=== PATIENT | male | born 1985 | race Caucasian/White ===

== ENCOUNTER 2019-04-12 09:51 | Emergency (ER) | payer SELFPAY ==
[~2019-04-12] VITALS: Ht 170.2 cm; Wt 77.3 kg
[~2019-04-12 09:51] MED LIST: NO HOME MEDS
--- NOTE | 2019-04-12 10:20 | NUR ---
Patient placed in room safely at this time, [employer] at bedside writing 5150, handcuffs in place, [employer] intact, patient keeps requesting his risperdal and states "I want my meds and I wanna go". Patient yelling, aggitated r/t staying in hospital with 5150 hold. Patient re assured and educated on 5150 hold, security at bedside, Dr Lares made aware of agitation.
[2019-04-12 10:32] LABS: BASOPHILS % (AUTO) 0.5 % (0-1); EOSINOPHILS # (AUTO) 0.1 X10'3 (0-0.9); EOSINOPHILS % (AUTO) 1.4 % (0-6); HEMATOCRIT 41.8 % (42.0-52.0); HEMOGLOBIN 14.3 g/dl (14.0-17.9); LYMPHOCYTES # (AUTO) 3.2 X10'3 (1.1-4.8); LYMPHOCYTES % (AUTO) 36.4 % (21-51); MEAN CORPUSCULAR HEMOGLOBIN 30.6 PG (27.0-31.0); MEAN CORPUSCULAR HGB CONC 34.3 g/dL (33.0-36.5); MEAN CORPUSCULAR VOLUME 89.3 FL (78-98); MEAN PLATELET VOLUME 6.1 FL (7.4-10.4); MONOCYTES # (AUTO) 0.6 X10'3 (0-0.9); MONOCYTES % (AUTO) 6.5 % (2-12); NEUTROPHILS # (AUTO) 4.9 X10'3 (1.8-7.7); NEUTROPHILS % (AUTO) 55.2 % (42-75); PLATELET COUNT 309 X10'3 (140-440); RED BLOOD COUNT 4.68 X10'6 (4.70-6.10); RED CELL DISTRIBUTION WIDTH 13.5 % (11.5-14.5); WHITE BLOOD COUNT 8.8 X10'3 (4.5-11.0)
--- NOTE | 2019-04-12 10:35 | NUR ---
Patient calm and cooperative, changed into gown independently and provided UA sample as requested by MD. Patient laying supine in bad with eyes closed and hands up in air in front, tapping fingers.
[2019-04-12 10:49] LABS: ALANINE AMINOTRANSFERASE 28 U/L (12-78); ALBUMIN 3.6 G/DL (3.4-5.0); ALKALINE PHOSPHATASE 61 IU/L (46-116); ANION GAP 5 (8-16); ASPARTATE AMINO TRANSFERASE 23 U/L (10-37); BLOOD UREA NITROGEN 11 MG/DL (7-18); BUN/CREATININE RATIO 12.9 (5.4-32.0); CALCIUM 8.4 MG/DL (8.5-10.1); CHLORIDE 106 MMOL/L (99-107); CREATININE 0.85 MG/DL (0.60-1.10); ETHANOL < 0.010 GM/DL (0.0-0.010); GLUCOSE 91 MG/DL (70-104); POTASSIUM 3.8 MMOL/L (3.5-5.1); SODIUM 141 MMOL/L (135-145); TOTAL CARBON DIOXIDE 29.6 MMOL/L (24-32); TOTAL PROTEIN 7.2 G/DL (6.4-8.2); eGFR > 90 ML/MIN
[2019-04-12 11:02] LABS: CLARITY,URINE CLEAR (Clear); COLOR,URINE YELLOW (Yellow); GLUCOSE, URINE NEGATIVE (Neg); KETONES,URINE NEGATIVE (Neg); LEUKOCYTE ESTERASE ,URINE NEGATIVE (Neg); NITRITES, URINE NEGATIVE (Neg); OCCULT BLOOD,URINE NEGATIVE (Neg); PROTEIN,URINE TRACE mg/dl (Neg); UA COLLECTION TYPE NON-SPECIFIED
[2019-04-12 11:14] LABS: URINE AMPHETAMINE SCREEN POSITIVE (Neg); URINE BARBITUATE SCREEN NEGATIVE (Neg); URINE BENZODIAZEPINES SCREEN NEGATIVE (Neg); URINE CANNABINOID SCREEN POSITIVE (Neg); URINE COCAINE SCREEN NEGATIVE (Neg); URINE METHADONE SCREEN NEGATIVE (Neg); URINE OPIATE SCREEN NEGATIVE (Neg); URINE PHENCYCLIDINE SCREEN NEGATIVE (Neg)
[2019-04-12 11:21] LABS: BACTERIA,URINE 1+ /HPF (Neg); HYALINE CASTS 0-3 /LPF (NEGATIVE); MUCUS STRANDS MODERATE /LPF (Neg); RBC,URINE 0-2 /HPF (0-2); SQUAMOUS EPITHELIAL CELL,UR FEW /LPF (FEW); WBC,URINE 0-4 /HPF (0-4)
--- NOTE | 2019-04-12 11:30 | NUR ---
Patient sleeping, no signs of distress noted, patient in view of nursing staff at all times.
--- NOTE | 2019-04-12 11:42 | NUR ---
Call to [facility] for medication recon, per facility patient not in system since 2009.
--- NOTE | 2019-04-12 12:34 | NUR ---
Patient continues to sleep, occasionally shifts position, no signs of distress noted, patient visually monitored at all times.
--- NOTE | 2019-04-12 13:10 | NUR ---
Patient arousable via verbal stimuli, eating lunch, no signs of distress noted, patient visible to staff at all times.
--- NOTE | 2019-04-12 13:20 | NUR ---
Call to [facility] at this time, last seen 2009 with no medication list on file.
--- NOTE | 2019-04-12 14:32 | NUR ---
Patient sleeping, no signs of distress noted, patient in vision of staff at all times.
--- NOTE | 2019-04-12 15:03 | NUR ---
Call to [facility] pharmacy at this time, no medications on file per pharmacy.
--- NOTE | 2019-04-12 15:05 | NUR ---
Call to [facility] at this time with no record of patient at this pharmacy.
--- NOTE | 2019-04-12 16:05 | NUR ---
Patient up to restroom at this time, no signs of distress noted, safely returned to bed.
--- NOTE | 2019-04-12 17:05 | NUR ---
Patient sleeping, no signs of distress noted.
--- NOTE | 2019-04-12 18:44 | NUR ---
Call to [facility] at this time and spoke with Emy to inform Dr Norwood patient needs to be evaluated. RN to inform provider.
--- NOTE | 2019-04-12 21:07 | NUR ---
[facility] at bedside to assess patient at this time.
[2019-04-12] MEDS ORDERED: RISP2TAB3 PO (21:20)
--- NOTE | 2019-04-12 21:20 | NUR ---
Per Eric in [facility] patient received 2 mg Rispiridone PO HS, medication reconciliation updated.
[2019-04-12] MEDS ORDERED: RISP120S SQ (21:22)
[2019-04-12] MEDS ORDERED: RISP2TAB97 PO (21:34)
[2019-04-12 21:46] VITALS: BP 114/76
== END 2019-04-12 21:49 | disposition home or self-care (01) ==
LOC: ER 09:51
DX: F20.0 Paranoid schizophrenia (principal); F15.90 Other stimulant use, unspecified, uncomplicated; Z59.0 Homelessness; Z79.899 Other long term (current) drug therapy
CPT/HCPCS: 36415; 80053; 80305; 80320; 81001; 85025; 99283; 99285

== ENCOUNTER 2023-11-15 16:18 | Emergency (ER) | payer OTHER ==
[~2023-11-15] VITALS: Ht 180.3 cm; Wt 81.8 kg
[~2023-11-15 16:18] MED LIST changes: -NO HOME MEDS; +RISP-32 PO; +RISP120S SQ; +RISP2TAB97 PO
[2023-11-15 17:13] VITALS: BP 156/72; PULSE 89; RESP 16; TEMP 98; O2SAT 98
== END 2023-11-15 17:27 ==
LOC: ER 16:19
DX: H10.213 Acute toxic conjunctivitis, bilateral (principal); F15.90 Other stimulant use, unspecified, uncomplicated; Z79.899 Other long term (current) drug therapy
CPT/HCPCS: 99283; J7030